=== PATIENT | male | born 1950 | race Caucasian/White ===

== ENCOUNTER → 2020-05-26 11:32 | Outpatient (BNVA) | payer MEDICARE, SELFPAY | PROVIDERS: PCP Nurse Practitioner; Referring Provider Nurse Practitioner; Visit Provider Internal Medicine Cardiovascular Disease | DX: I21.11 ST elevation (STEMI) myocardial infarction involving right coronary artery (principal); I25.10 Atherosclerotic heart disease of native coronary artery without angina pectoris; E78.2 Mixed hyperlipidemia | CPT/HCPCS: 99203 ==

== ENCOUNTER 2021-04-23 18:40 | Outpatient (REF) | payer MEDICARE, SELFPAY ==
[2021-04-23 20:34] LABS: ALT 34 U/L (16-63); AST 30 U/L (15-37); Albumin 4.1 g/dL (3.4-5.0); Alkaline Phosphatase 90 U/L (46-116); Anion Gap 6.4 mmol/L (3-11); BUN 27 mg/dL (7-18); Bilirubin, Total 0.7 mg/dL (0.2-1.0); CO2 30.6 mmol/L (21.0-32.0); CREATININE 1.2 mg/dL (0.70-1.30); Calcium 8.8 mg/dL (8.5-10.1); Calculated LDL 54 mg/dL (<100); Chloride 104 mmol/L (98-107); Cholesterol 107 mg/dL (<200); Estimated GFR 59.86 (mL/min/1.73m2); Glucose 115 mg/dL (74-106); HDL Cholesterol 32 mg/dL (40-60); Potassium 4.2 mmol/L (3.5-5.1); Sodium 141 mmol/L (136-145); Total Protein 7.2 g/dL (6.4-8.2); Triglyceride 107 mg/dL (<150)
[2021-04-23 20:43] LABS: Bilirubin, Direct 0.2 mg/dL (0.0-0.2)
== END 2021-04-23 18:41 | disposition home or self-care (01) ==
LOC: LBN 18:40
PROVIDERS: PCP Nurse Practitioner; Visit Provider Nurse Practitioner
DX: E11.9 Type 2 diabetes mellitus without complications; R93.2 Abnormal findings on diagnostic imaging of liver and biliary tract; I21.11 ST elevation (STEMI) myocardial infarction involving right coronary artery
CPT/HCPCS: 80048; 80061; 80076

== ENCOUNTER → 2021-12-30 13:55 | Outpatient (BNVA) | payer OTHER, SELFPAY | PROVIDERS: PCP Family Medicine; Referring Provider Family Medicine; Visit Provider Internal Medicine Cardiovascular Disease | DX: I25.10 Atherosclerotic heart disease of native coronary artery without angina pectoris (principal); E78.2 Mixed hyperlipidemia | CPT/HCPCS: 99213 ==

== ENCOUNTER 2022-12-06 00:46 | Outpatient (CLI) | payer MEDICARE, SELFPAY ==
--- NOTE | 2022-12-06 07:00 | DI.MRI_ITS ---
Exam(s) MR UPPER JOINT RT WO EXAM: MR UPPER JOINT RT WO CLINICAL HISTORY: increased rt shoulder pain, m25.511 TECHNIQUE: Multiplanar multisequence MRI of the shoulder was performed. COMPARISON: No exams were available for comparison FINDINGS: MARROW:There is no evidence of fracture, Hill-Sachs deformity, nor ominous osseous lesions. However, there are multiple degenerative subarticular cysts seen in the lateral aspect of the humeral head-gre ater tuberosity region as well as in the anterior lateral humeral head. ROTATOR CUFF MECHANISM: AC JOINT/ACROMIUM: There are moderate degenerative changes in the AC joint some impingement at level. . There is no evidence of os acromiale. Supraspinatus: There is some thickening and abnormal increased signal within the supraspinatus tendon consistent with tendinitis-tendinosis. There is also fluid signal intensity in the anterior-mint zon e consistent with articular surface partial thickness tearing but no obvious full-thickness tear evid ent. Infraspinatus: Tendinitis signal with subtle small area of partial thickness articular side tearing. No full-thickness tear. Teres Minor: Intact. No evidence of tear nor muscle atrophy. There is fluid evident in the subacromial-subdeltoid bursa Subscapularis/anterior cuff:Significant signal abnormality in the deep tendon fibers at the lesser tu berosity level suspicious for partial tearing. BICEPS TENDON: There is significant signal abnormality consistent with tearing of the biceps intra-ar ticular segment. The tendon appears retracted approximately 3 cm relative to the bicipital groove. Few thin remaining strands are evident in the bicipital groove. LABRUM: No labral tear identified. No evidence of paralabral cyst. GLENOHUMERAL JOINT: There is moderate thinning of the articular cartilage. No prominent osteophytes. Degenerative subarticular cysts are seen in the lateral aspect of the humeral head. None in the osseo us glenoid. Inferior glenohumeral ligament is intact. Minimal amount of increased joint fluid. No loo se intra-articular bodies evident. QUADRILATERAL SPACE: No evidence of mass in the region of the axillary nerve and dorsal circumflex hu meral vessels. Visualized triceps muscle at this level appears unremarkable. IMPRESSION: 1. There is partial-thickness tearing of the supraspinatus tendon superimposed upon tendinitis/tendin osis findings. 2. Partial thickness focal tear of the infraspinatus. No full-thickness tear. 3. Partial-thickness tearing of the anterior cuff-subscapularis 4. High-grade tearing of the long head biceps tendon intra-articular aspect with tendon retraction an d a few remaining strands or Peritenon within the inter tubercular groove There is some fluid in the subacromial-subdeltoid bursa. Minimal amount of glenohumeral joint fluid. Mild degenerative changes in the glenohumeral joint. No loose intra-articular bodies. DATA REPOSITORY:
--- NOTE | 2022-12-06 07:07 | DI.MRI_ITS ---
Exam(s) MR LUMBAR SPINE WO EXAM: MR LUMBAR SPINE WO CLINICAL HISTORY: increased rt hip pain, m25.551. TECHNIQUE: Multiplanar multisequence MRI of the Lumbar spine was performed. COMPARISON: No exams were available for comparison FINDINGS: Five lumbar vertebrae are presumed. Conus medullaris is at normal level. There is no evidence of conus mass nor subjacent clumping of in trathecal nerve roots to suggest arachnoiditis. The distal thecal sac appears unremarkable.There is no evidence of Tarlov intrasacral cysts nor other significant findings within the sacral canal Bones:There are no fractures nor ominous osseous lesions in the lumbar vertebral bodies and visualize d sacrum. There is, however, a Schmorl's node invagination in the anterior aspect of the superior en dplate L4. Appears subacute. No height loss of this vertebra is noted. With respect to the individual levels... T12-L1: Unremarkable L1-2: Normal disc height and signal. No disc herniation nor central canal stenosis.No foraminal steno sis L2-3: Anterior osteophytes. Normal disc height. No disc herniation nor central canal stenosis.No fo raminal stenosis.Mild facet degenerative changes. L3-4: Anterior osteophytes. Normal disc height. There is annular bulging which is slightly more pro minent on the right side, extending into the floor of the exiting right neural foramen but without si gnificant foraminal stenosis. Central canal dimensions lower normal. Some degenerative changes are evident in the facet joints, more so on the left side. L4-5: Anterior osteophytes. Normal disc height. Smooth invagination of the inferior endplate of L4. No true compression fracture. There is, however, a subacute appearing Schmorl's node invagination at the anterior aspect of the superior endplate of L4 noted. Posteriorly there is broad relatively s ymmetrical annular bulging. This results in mild central canal stenosis. The annular bulging extend s into the floor of the exiting neural foramen, more so on the right side, resulting in mild right-si ded foraminal stenosis. No foraminal stenosis seen on the opposite-left side. There are degenerativ e changes in the left facet joint; less so on the right side. L5-S1: Normal disc height and signal. No disc herniation or central canal stenosis. No significant foraminal stenosis at this level. Degenerative changes noted both facet joints. Increased signal no lorenzo within the right facet joint at this level. There is no evidence of degenerative synovial cyst a t this level nor elsewhere in the lumbar spine. Soft tissues: paraspinal soft tissues appear unremarkable. IMPRESSION: 1. Mild multilevel findings, as described individually above. 2. At L4-5 level there is broad relatively symmetrical annular bulging resulting in mild central jarett l stenosis and there is annular bulging into the floor of the right exiting neural foramen resulting in mild right-sided foraminal stenosis. 3. Other findings as described above. DATA REPOSITORY:
--- NOTE | 2022-12-06 19:24 | DI.VRAD_ITS ---
PROCEDURE INFORMATION: Exam: MR Right Upper Extremity Joint Without Contrast; Shoulder Exam date and time: 12/06/2022 8:00 AM Age: 72 years old Clinical indication: Other: Increased RT shoulder pain, TECHNIQUE: Imaging protocol: Magnetic resonance imaging of the right upper extremity without contrast. Exam focused on the shoulder. COMPARISON: No relevant prior studies available. FINDINGS: Bones/joints: Right AC joint is well aligned with mild-moderate osteoarthritic spurring superior and inferiorly, without significant medial arch stenosis. Neutral acromial slope with only slight lateral undersurface excrescence development and no significant lateral arch stenosis. No fracture or dislocation. Moderate subcortical enthesopathic cyst development in the greater tuberosity. Minimal shoulder joint effusion. Small volume bursal effusion in the subacromial/subdeltoid bursa. Chondral thinning in the glenohumeral joint without focal osteochondral defect. Glenoid labrum: No labral tears. Supraspinatus tendon: The supraspinatus tendon demonstrates distal thickening and intrasubstance T2 hyperintensity which reaches fluid signal intensity at the anterior attachment zone on axial fat-suppressed proton density image 11 consistent with undersurface partial-thickness tear measuring 5 mm AP by 4 mm longitudinal and involving 60-70% tendon thickness with no full-thickness penetration. Thickening and isointensity in the anterior half of the tendon may be due to associated tendinitis versus underlying chronic tendinosis. Infraspinatus tendon: Infraspinatus demonstrates a small undersurface partial tear measuring about 4 mm AP x 8 mm longitudinal and involving about 25% of tendon thickness. Possible thin element of full-thickness penetration to the bursal surface of the tendon on the sagittal T2 sequence. No tendon retraction. Subscapularis tendon: Subscapularis tendon deep fibers demonstrate intrasubstance T2 hyperintensity near the lesser tuberosity attachment zone suspicious for interstitial partial tear. Teres minor tendon: Teres minor is intact. Tendon of biceps brachii: Full-thickness or near full-thickness tear of the biceps long head tendon intra-articular segment. The distal tendon is retracted about 3 cm distal to the bicipital groove and demonstrates moderate thickening and T2 hyperintensity, best seen on sagittal fat-suppressed T2 image 10. There is a thin hypointense remnant tracking through the bicipital groove which may represent a few intact fibers or peritenon. Glenohumeral ligaments: Unremarkable. Soft tissues: See Infraspinatus tendon finding. IMPRESSION: 1. Full-thickness or near full-thickness tear of the biceps long head tendon intra-articular segment with distal retraction. 2. Small partial-thickness undersurface tear involving the anterior supraspinatus tendon insertional zone, about 60-70% thickness. No full-thickness penetration or tendon retraction. Additional changes of tendonitis versus chronic tendinosis in the anterior tendon as well. 3. Small undersurface partial-thickness tear in the distal infraspinatus tendon, less than 50% thickness. 4. Suspect mild component of interstitial partial tear involving the deep fibers of supraspinatus near the insertion. 5. Minimal shoulder joint effusion and mild bursal effusion in the subacromial/subdeltoid bursa. Dictated and Authenticated by: Ayo Giordano MD. Ordering:ADDISON Carreno MD
== END 2022-12-06 01:06 ==
LOC: DI 00:47
PROVIDERS: PCP Family Medicine; Visit Provider Nurse Practitioner Family
DX: M48.02 Spinal stenosis, cervical region; M99.71 Connective tissue and disc stenosis of intervertebral foramina of cervical region; M25.78 Osteophyte, vertebrae
CPT/HCPCS: 72148; 73221; 82565

== ENCOUNTER 2022-12-19 01:16 | Outpatient (CLI) | payer MEDICARE, SELFPAY ==
[2022-12-19] MEDS: Regadenoson 0.4 MG/5 ML SYR IVP (10:00)
--- NOTE | 2022-12-19 10:28 | DI.NM_ITS ---
APPROVED REPORT Exam: Pharmacologic Patient Location: Out-Patient Room/Bed: Stress Nurse: Radha Vargas RN Ordering Provider:RONDA BLANCOD, Contact Number: BMI: 26.85 Baseline Rhythm: Sinus Bradycardia Indications: Assess CAD, Heart Disease, Coronary angioplasty status Medical History Medical History: CAD, DM, Anxiety, HLD, Obesity, Depression, OA, Sciatica, STEMI 04/2020, ASCVD, BPH Cardiac Medications: Trazadone, Tamsulosin, Rosuvastatin, Metoprolol succinate, Metformin, Meloxicam, Lisinopril, citalopram, Aspirin Allergies: NKA Cardiac Risk Factors: Family Hx, CVD, HTN, HLD, Dm, Former Smoker Previous Cardiac Procedures: Stents 04/2020 Pretest Chest Pain Characteristics: None Exercise History: Sedentary Physical Disabilities: R hip pain Lung Sounds: Clear to auscultation Heart Sounds: Regular Stress Test Details Test: Pharmacologic stress was paired with low level exercise. Nuclear Acquisition: Stress Tc-99m/Stress Tc-99m 1 day Rest Isotope: Tc-99m Sestamibi. Dose: 10 Date: 12/19/2022 Injection Time: 0835 Stress Isotope: Tc-99m Sestamibi. Dose: 30 Date: 12/19/2022 Injection Time: 1017 HR Resting HR Supine: 52 bpm Max Heart Rate (APMHR): 148.814777 bpm Resting HR Standin bpm Target HR (85% APMHR): 125.736290 bpm Max HR Achieved: 74 bpm % of APMHR: 50.00 Recovery HR: 63 bpm BP Resting BP Supine: 112/72 mmHg Resting BP Standin/66 mmHg Max BP: 122/72 mmHg Recovery BP: 122/72 mmHg ECG Resting ECG: Sinus Bradycardia Ectopy: none Stress ECG: Sinus Bradycardia ST Change: No significant ST segment changes noted Arrhythmia: None Recovery ECG: Sinus Bradycardia Recovery ST Change: No significant ST segment changes noted Recovery Arrhythmia: None Clinical Rate Pressure Product: 9028 Stress ECG Conclusion 1. Resting electrocardiogram was within normal limits 2. Patient underwent testing using a combination of low-level exercise and pharmacologic stress with regadenoson 3. Peak heart rate achieved was 50% of predicted for age 4. The electrocardiographic portion of the test was nondiagnostic 5. See MPI report Stress Test Summary STAGE HR BP SpO2 Symptoms NOTES Supine 52 112/72 98 Standing 57 102/66 97 1 min post Lexiscan injection 74 102/68 96 3 min post Lexiscan injection 64 120/68 97 6 min post Lexiscan injection 63 122/72 98 Pharmacologic testing was paired with low level exercise, 1.4MPH, 0% grade for 2 minutes pre-injectio n and 2 minutes post-injection. MPI Conclusion Myocardial perfusion is normal. There is no ischemia or evidence of prior infarction EF 56%, normal wall motion Radiologist Interpretation Radiologist Interpretation by: Nate Moise MD Interpretation Date/Time: 12/19/2022 17:36:07
== END 2022-12-19 01:36 ==
LOC: DI 01:16
PROVIDERS: PCP Family Medicine; Visit Provider Internal Medicine Cardiovascular Disease
DX: I25.10 Atherosclerotic heart disease of native coronary artery without angina pectoris (principal); Z98.61 Coronary angioplasty status
CPT/HCPCS: 78452; 93016; 93018; 93017; J2785

== ENCOUNTER 2023-01-12 08:19 | Outpatient (CLI) | payer MEDICARE, SELFPAY ==
--- NOTE | 2023-01-12 08:15 | RT.EKG_ITS ---
APPROVED REPORT Exam: Resting ECG Reason for Exam: ASCVD Patient Location: O HR:59 bpm ECG Measurements Heart Rate [address] 149 P 41 QRSd 95 QRS 13 QT 396 T 47 QTc 393 Conclusion Sinus rhythm...normal P axis, V-rate 50- 99 Borderline low voltage, extremity leads...all extremity leads <0.6mV Otherwise normal ECG
== END 2023-01-12 08:20 | disposition home or self-care (01) ==
LOC: DI.CARD 08:23
PROVIDERS: PCP Family Medicine; Visit Provider Internal Medicine Cardiovascular Disease
DX: I25.10 Atherosclerotic heart disease of native coronary artery without angina pectoris (principal); Z98.61 Coronary angioplasty status
CPT/HCPCS: 93010

== ENCOUNTER 2023-01-12 10:17 | Outpatient (CLI) | payer MEDICARE, SELFPAY ==
[2023-01-12 09:29] LABS: CREATININE 1.1 mg/dL (0.70-1.30); Estimated GFR 71.32 (mL/min/1.73m2)
== END 2023-01-12 10:18 | disposition home or self-care (01) ==
LOC: LBO 10:20
PROVIDERS: PCP Family Medicine; Visit Provider Nurse Practitioner Family
DX: M25.511 Pain in right shoulder (principal); M25.551 Pain in right hip
CPT/HCPCS: 36415; 82565; 99213

== ENCOUNTER 2023-06-22 09:43 | Outpatient (CLI) | payer MEDICARE, SELFPAY ==
[2023-06-22 12:39] LABS: Hemoglobin A1C 6.2 % (<5.7)
[2023-06-22 12:42] LABS: Calculated LDL 76 mg/dL (<100); Cholesterol 145 mg/dL (<200); HDL Cholesterol 46 mg/dL (40-60); Potassium 4.5 mmol/L (3.5-5.1); Triglyceride 118 mg/dL (<150)
== END 2023-06-22 09:44 | disposition home or self-care (01) ==
LOC: LOS 09:44
PROVIDERS: PCP Family Medicine; Referring Provider Family Medicine; Visit Provider Family Medicine
DX: I10 Essential (primary) hypertension (principal); E78.5 Hyperlipidemia, unspecified; E11.51 Type 2 diabetes mellitus with diabetic peripheral angiopathy without gangrene
CPT/HCPCS: 36415; 80061; 83036; 84132